=== PATIENT | male | born 1985 | race Caucasian/White ===

== ENCOUNTER 2019-07-19 12:30 | Emergency (ER) | payer MEDICAID ==
[~2019-07-19] VITALS: Ht 175.3 cm; Wt 95.3 kg
[2019-07-19 12:39] VITALS: BP_SYST 148
[2019-07-19] MEDS ORDERED: EPINEPHrine 1 MG/ML AMP IM ONE (13:00)
[2019-07-19] MEDS ORDERED: methylPREDNISolone SOD SUCC/PF 62.5 MG/ML VIAL IM ONE (13:00)
[2019-07-19 13:48] VITALS: BP_SYST 146
== END 2019-07-19 13:49 | disposition home or self-care (01) ==
LOC: SED 13:16
DX: T78.1XXA Other adverse food reactions, not elsewhere classified, initial encounter (principal); X58.XXXA Exposure to other specified factors, initial encounter
CPT/HCPCS: 96372; 99284; J0171; J2930